=== PATIENT | male | born 1995 | race Caucasian/White ===

== ENCOUNTER 2021-08-12 13:27 | Outpatient (REF) | payer BC, SELFPAY ==
[2021-08-12 13:45] LABS: MANUAL DIFF FLAG NO
[2021-08-12 14:15] LABS: Basophils Absolute Auto 0.1 X10*3/uL (0.0-0.2); Basophils Percent Auto 1.2 % (0-2); Eosinophils Absolute Auto 0.1 X10*3/uL (0.0-0.4); Eosinophils Percent Auto 2.3 % (0-4); Hematocrit 44.7 % (42.0-52.0); Hemoglobin 15.3 g/dl (14.0-18.0); Imm Gran Abs Auto 0.02 X10*3/uL (0.00-0.03); Imm Gran Pct Auto 0.3 % (0.0-0.4); Lymphocytes Absolute Auto 2.3 X10*3/uL (1.2-4.9); Lymphocytes Percent Auto 40.1 % (20-40); Mean Corpuscular HGB Conc 34.2 g/dl (31.0-36.0); Mean Corpuscular Hemoglobin 30.4 pg (27.0-33.0); Mean Corpuscular Volume 88.9 fL (80.0-98.0); Mean Platelet Volume 9.4 fL (9.4-12.4); Monocytes Absolute Auto 0.6 X10*3/uL (0.1-1.2); Monocytes Percent Auto 9.6 % (2-11); Neutrophils Absolute Auto 2.7 x10*3/uL (2.0-8.3); Neutrophils Percent Auto 46.5 % (45-73); Platelet Count 299 X10*3/uL (160-400); Red Blood Count 5.03 X10*6/uL (4.60-5.80); Red Cell Distribution Width 12.3 % (11.0-16.0); White Blood Count 5.7 X10*3/uL (4.8-10.8)
[2021-08-12 14:39] LABS: Alanine Aminotransferase 28 U/L (0-40); Albumin Level 4.8 g/dL (3.5-5.0); Alkaline Phosphatase 47 U/L (39-117); Anion Gap 13 (12-20); Aspartate Amino Transferase 19 U/L (5-37); Bilirubin Total 0.6 mg/dL (0.0-1.0); Blood Urea Nitrogen 12 mg/dL (9-16); Carbon Dioxide 28 mmol/L (22-29); Chloride 102 mmol/L (96-108); Cholesterol 172 mg/dL; Estimated Glomerular Filt Rate > 60; Glucose Fasting 98 mg/dL (60-99); HDL Cholesterol 58 mg/dL; LDL Cholesterol Calculated 95 mg/dl; Potassium 4.4 mmol/L (3.3-5.1); Sodium 139 mmol/L (135-145); Total Protein 7.5 g/dL (6.5-8.0); Triglycerides 97 mg/dL
[2021-08-12 15:00] LABS: TSH reflex Free T4 0.93 uIU/mL (0.32-4.0)
== END 2021-08-12 13:28 | disposition home or self-care (01) ==
LOC: HO.LAB 13:27
PROVIDERS: PCP Physician Assistant; Visit Provider Nurse Practitioner Acute Care
DX: Z00.00 Encounter for general adult medical examination without abnormal findings (principal); Z13.1 Encounter for screening for diabetes mellitus
CPT/HCPCS: 36415; 80053; 80061; 84443; 85025

== ENCOUNTER 2023-07-11 13:47 | Outpatient (AMB) | payer OTHER, SELFPAY ==
--- NOTE | 2023-07-11 13:49 | A.OFFPC_ITS ---
Vital Signs 07/11/23 13:51 Height 5 ft 10 in Weight 191 lb 8 oz BMI 27.5 BP 110/70 Blood Pressure Location Lt brachial Position Sitting Pulse 63 Pulse Source Pulse Oximeter Pulse Oximetry (%) 98 Oxygen Delivery Method Room Air Intake Visit Reasons: Annual PE Intake Note: Patient is here today for a physical. [employer] Supervisor Required: No Correspondence Specialist: Not Required per policy Accompanied by: Self / Same As Patient Allergies No Known Allergies Allergy (Verified 07/11/23 14:01) Medication List - Last Reconciled 07/11/23 by CHICHI Busby finasteride 1 mg PO DAILY Tobacco use date assessed: 07/11/23 Dental Screening Dental Screen Date: 07/11/23 Did you have a dental visit in the last 12 months?: Yes Did you have a dental problem in the last 6 months where you did not have access to dental care?: No Was dental information given to patient?: Patient has dentist HPI Annual PE HPI Details Patient is a 27-year-old male who presents today for physical exam. Patient of KANE Mayorga. patient reports history for numerous skin moles and some were removed in the past, also would like to see Dermatology to check skin moles, reports family history of skin cancer. 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 He was not on medications in the past. Interested in counseling referral and testing for ADHD. Currently on finasteride for hair loss which is prescribed by online provider. Tdap up-to-date per patient. Eye and dental exams up-to-date. No shortness of breath or chest pain. [facility] Medical History Counseling on health promotion and disease prevention Surgical History History of surgery Family History Father Alive and well Mother Alive and well Social [facility] Alcohol intake: current Alcohol intake frequency: a few times a week Patient Tobacco Use Status: Never used Tobacco e-Cigarette/Vaping Use: Never Used Second Hand Smoke Exposure: No service: No Current occupational status: employed Cognitive needs: No Hearing needs: No Vision needs: Yes (glasses) Questionnaire PHQ-9 Over the last 2 weeks, how often have you been bothered by any of the following problems? 1. Little interest or pleasure in doing things: not at all 2. Feeling down, depressed, or hopeless: not at all 3. Trouble falling or staying asleep, or sleeping too much: not at all 4. Feeling tired or having little energy: not at all 5. Poor appetite or overeating: not at all 6. Feeling bad about yourself - or that you are a failure or have let yourself or your family down: not at all 7. Trouble concentrating on things, such as reading the newspaper or watching television: not at all 8. Moving or speaking so slowly that other people could have noticed. Or the opposite - being so fidgety or restless that you have been moving around a lot more than usual: not at all 9. Thoughts that you would be better off or of hurting yourself in some way: not at all Total score: 0 Depression Screening Interpretation: Negative Depression Screening Done: Yes 43049 - PHQ-9 Billing: Yes Source: Developed by Drs. Ivan Thayer, Ursula Reyes, Rafal Orr and colleagues, with an educational ivan from [employer]. Thrive Questionnaire Date Thrive assessed: 07/11/23 I am a: Patient What is your living situation today?: I have a steady place to live Within the past 12 months, did the food you bought not last and you didn't have the money to get more?: Never true Within the past 12 months, did you worry whether your food would run out before you got money to buy more?: Never true Do you have trouble paying for medicines?: No Do you have trouble getting transportation to medical appointments?: No Do you have trouble paying your heating and electricity bill?: No Do you have trouble taking care of your child, family member or friend?: No Do you have trouble with day-to-day activities such as bathing, preparing meals, shopping, managing finances, etc.?: No Are you currently unemployed and looking for a job?: No Are you interested in more education?: No Currently or been in a relationship where the following occur: no concerns reported AUDIT C Alcohol Use Questionnaire (AUDIT-C) 1. How often do you have a drink containing alcohol?: Never Total Score: 0 Score Reviewed/Action Taken: No EMMANUEL-7 AMB Questionnaire EMMANUEL-7 Date EMMANUEL - 7 assessed: 07/11/23 Feeling nervous, anxious, or on edge: 2 = More than half the days Not being able to stop or control worryin = Not at all Worrying too much about different things: 0 = Not at all Trouble relaxin = Not at all Being so restless that it is hard to sit still: 0 = Not at all Becoming easily annoyed or irritable: 2 = More than half the days Feeling afraid as if something awful might happen: 0 = Not at all Total EMMANUEL-7 score (0-4 normal; 5-9 mild; 10-14 moderate; 15-21 severe): 4 Source: Developed by Drs. Ivan Thayer, Ursula Reyes, Rafal Orr and colleagues, with an educational ivan from [employer]. EMMANUEL-7 Assessment Billing EMMANUEL-7 Assessment Tool: EMMANUEL-7 Assessment 36946 Review of Systems Const Denies body aches, Denies chills, Denies fever(s) and Denies headache(s) Eyes Denies change in vision ENT Denies dizziness, Denies otalgia, Denies headache(s), Denies nasal discharge, Denies sinus pain and Denies sore throat Card Denies chest pain, Denies edema, Denies lightheadedness and Denies dyspnea Resp Denies cough, Denies dyspnea and Denies wheezing GI Denies abdominal pain, Denies constipation, Denies diarrhea, Denies nausea and Denies vomiting Denies dysuria Musc Denies myalgias Skin/Breast Denies rash Neuro Denies dizziness and Denies headache(s) Psych Reports anxiety Aller/Immun Denies wheezing Physical exam (Primary Care) Vital Signs: Last Vital Signs Pulse 63 07/11/23 13:51 BP 110/70 07/11/23 13:51 Pulse Ox 98 07/11/23 13:51 Oxygen Delivery Method Room Air 07/11/23 13:51 BMI result Body Mass Index 27.5 Tobacco/Smoking Status: Tobacco use Status Tobacco use date assessed 07/11/23 07/11/23 13:58 Patient Tobacco Use Status Never used Tobacco 07/11/23 13:58 e-Cigarette/Vaping Use Never Used 07/11/23 13:58 PHQ-9: PHQ-9 Score PHQ-9: Total score 0 07/11/23 13:58 Depression Screening Interpretation: Negative Thrive Assessment: Date of Thrive Assessment Date Thrive assessed 07/11/23 07/11/23 13:58 Currently or been in a relationship where the following occur: no concerns reported Const General: cooperative and no acute distress Orientation/consciousness: patient oriented x3 HENMT Head: Yes normocephalic and Yes atraumatic Ears: TM's normal bilaterally Face and sinus: Yes sinuses nontender Mouth: oropharynx normal and moist mucous membranes Throat: Yes posterior oropharynx normal Eyes General: appearance normal, both eyes and all related structures Pupils: Equal, round and reactive pupils present EOM: EOMs intact bilaterally Neck Neck: Yes normal visual inspection, Yes full ROM and Yes no lymphadenopathy Thyroid: Thyroid normal Resp Effort & Inspection: normal respiratory effort and able to speak in complete sentences Auscultation: clear to auscultation bilaterally, no crackles, no rales, no rhonchi and no wheezes Cardio Rate: regular rate Rhythm: regular rhythm Heart sounds: S1 normal heart sound present, S2 normal heart sound present and no murmurs GI Palpation (GI): Soft to palpation, not firm, nontender, no guarding, not rigid and no hepatosplenomegaly Auscultation: normal bowel sounds General: No CVA tenderness Back/Spine/Pelvis Back: No CVA tenderness Skin Other: Bilateral arms with multiple skin moles Neuro General: patient oriented x3 Cranial nerves: Yes Equal, round and reactive pupils present Gait exam (Neuro): Normal gait present Extrem General: Yes full ROM and No edema Assessment and Plan Assessment & Plan (1) ADHD (attention deficit hyperactivity disorder) evaluation: Code(s): Z13.39 - Encounter for screening examination for other mental health and behavioral disorders Plan: Psychiatry referral (2) Numerous skin moles: Code(s): D22.9 - Melanocytic nevi, unspecified Plan: Dermatology referral (3) Anxiety: Code(s): F41.9 - Anxiety disorder, unspecified Plan: Counseling referral Start hydroxyzine b.i.d. p.r.n.-educated about drowsiness Signs and symptoms reviewed when to notify provider (4) Annual physical exam: Code(s): Z00.00 - Encounter for general adult medical examination without abnormal findings Plan: Repeat in 1 year Orders: Orders Vitamin D 25-OH Total Today Z00.00 - Encounter for general adult medical examination without abnormal findings TSH reflex Free T4 Today Z00.00 - Encounter for general adult medical examination without abnormal findings Complete Blood Count Auto Diff Today Z00.00 - Encounter for general adult medical examination without abnormal findings Comprehensive Met. Panel Today Z00.00 - Encounter for general adult medical examination without abnormal findings Referrals Psychiatry Referral Z13.39 - Encounter for screening examination for other mental health and behavioral disorders Dermatology Referral D22.9 - Melanocytic nevi, unspecified Counseling Referral F41.9 - Anxiety disorder, unspecified Medications: New hydroxyzine HCl 10 mg PO BID PRN 20 tabs 0RF anxiety F41.9 - Anxiety disorder, unspecified Coding Level of Care Code Est Pt Prev Care 18-39y(75228) Diagnoses ADHD (attention deficit hyperactivity disorder) evaluation Z.39 Numerous skin moles D22.9 Anxiety F41.9 Annual physical exam Z00.00 Additional Codes EMMANUEL-7 Assessment Billing - EMMANUEL-7 Assessment Tool: EMMANUEL-7 Assessment 26557 ([id number])
[2023-07-11 13:51] VITALS: BP 110/70; PULSE 63; O2SAT 98; BMI 27.5
== END 2023-07-11 14:15 | disposition home or self-care (01) ==
PROVIDERS: PCP Physician Assistant; Visit Provider Nurse Practitioner Family
DX: Z00.00 Encounter for general adult medical examination without abnormal findings (principal); D22.9 Melanocytic nevi, unspecified; F41.9 Anxiety disorder, unspecified
CPT/HCPCS: 99395

== ENCOUNTER 2023-07-11 14:22 | Outpatient (REF) | payer OTHER, SELFPAY ==
[2023-07-11 14:43] LABS: MANUAL DIFF FLAG NO
[2023-07-11 15:07] LABS: Basophils Absolute Auto 0.1 X10*3/uL (0.0-0.2); Basophils Percent Auto 0.8 % (0-2); Eosinophils Absolute Auto 0.1 X10*3/uL (0.0-0.4); Eosinophils Percent Auto 0.6 % (0-4); Hematocrit 45.4 % (42.0-52.0); Hemoglobin 15.3 g/dl (14.0-18.0); Imm Gran Abs Auto 0.03 X10*3/uL (0.00-0.03); Imm Gran Pct Auto 0.4 % (0.0-0.4); Lymphocytes Absolute Auto 2.4 X10*3/uL (1.2-4.9); Lymphocytes Percent Auto 28.1 % (20-40); Mean Corpuscular HGB Conc 33.7 g/dl (31.0-36.0); Mean Corpuscular Hemoglobin 29.9 pg (27.0-33.0); Mean Corpuscular Volume 88.8 fL (80.0-98.0); Mean Platelet Volume 9.6 fL (9.4-12.4); Monocytes Absolute Auto 0.7 X10*3/uL (0.1-1.2); Neutrophils Absolute Auto 5.2 x10*3/uL (2.0-8.3); Neutrophils Percent Auto 62.1 % (45-73); Platelet Count 305 X10*3/uL (160-400); Red Blood Count 5.11 X10*6/uL (4.60-5.80); Red Cell Distribution Width 12.4 % (11.0-16.0); White Blood Count 8.4 X10*3/uL (4.8-10.8)
[2023-07-11 15:37] LABS: Alanine Aminotransferase 25 U/L (0-40); Albumin Level 4.9 g/dL (3.5-5.0); Alkaline Phosphatase 48 U/L (39-117); Anion Gap 12 (12-20); Aspartate Amino Transferase 32 U/L (5-37); Bilirubin Total 0.6 mg/dL (0.0-1.0); Blood Urea Nitrogen 15 mg/dL (9-16); Calcium 10.1 mg/dL (8.4-10.2); Carbon Dioxide 28 mmol/L (22-29); Chloride 103 mmol/L (96-108); Estimated Glomerular Filt Rate > 60; Glucose Random 92 mg/dL (60-115); Potassium 4.3 mmol/L (3.3-5.1); Sodium 139 mmol/L (135-145); Total Protein 7.8 g/dL (6.5-8.0)
[2023-07-11 15:54] LABS: TSH reflex Free T4 0.96 uIU/mL (0.32-4.0); Vitamin D 25-OH Total 42.4 ng/mL (>30)
== END 2023-07-11 14:23 | disposition home or self-care (01) ==
LOC: HO.LAB 14:22
PROVIDERS: Visit Provider Nurse Practitioner Family
DX: Z00.00 Encounter for general adult medical examination without abnormal findings (principal); F41.1 Generalized anxiety disorder
CPT/HCPCS: 36415; 80053; 82306; 84443; 85025

== ENCOUNTER 2024-07-14 13:18 | Outpatient (AMB) | payer OTHER, SELFPAY ==
--- NOTE | 2024-07-14 13:26 | A.OFFPC_ITS ---
Vital Signs 07/14/24 13:29 Height 5 ft 10 in Weight 200 lb BMI 28.7 BP 130/82 Blood Pressure Location Lt brachial Position Sitting Pulse 65 Pulse Source Pulse Oximeter Pulse Oximetry (%) 99 Oxygen Delivery Method Room Air Intake Visit Reasons: pe Allergies No Known Allergies Allergy (Verified 07/14/24 13:49) Medication List - Last Reconciled 07/14/24 by Darell Mayorga PA-C finasteride 1 mg PO DAILY hydroxyzine HCl 10 mg PO BID PRN methylphenidate HCl ER 27 mg PO QAM Tobacco use date assessed: 07/11/23 Dental Screening Dental Screen Date: 07/11/23 HPI pe HPI Details Patient is a 28-year-old male here today for a routine annual physical. Patient has a past medical history significant for anxiety and ADHD. Concern--> reports his left ear is intermittently clogged and feels like there is congestion. .. ADHD : Followed by Psychiatry and continues with Concerta on a p.r.n. basis with with good effect on his attention and focus Vaccines: Declines FLu and COVID vaccines, needs tetanus vaccine though he declines today. [facility] Medical History Counseling on health promotion and disease prevention Surgical History History of surgery Family History (Updated 07/14/24 @ 13:52 by Darell Mayorga PA-C) Father Alive and well Mother Alive and well Melanoma Social History (Updated 07/14/24 @ 13:53 by Darell Mayorga PA-C) Housing: Condominium Alcohol intake: current Alcohol intake frequency: a few times a week Patient Tobacco Use Status: Never used Tobacco e-Cigarette/Vaping Use: Never Used Second Hand Smoke Exposure: No Substance Use Type: Marijuana service: No Current occupational status: employed Current occupation: [employer] Cognitive needs: No Hearing needs: No Vision needs: Yes (glasses) Questionnaire PHQ-9 Over the last 2 weeks, how often have you been bothered by any of the following problems? 1. Little interest or pleasure in doing things: not at all 2. Feeling down, depressed, or hopeless: not at all 3. Trouble falling or staying asleep, or sleeping too much: not at all 4. Feeling tired or having little energy: not at all 5. Poor appetite or overeating: not at all 6. Feeling bad about yourself - or that you are a failure or have let yourself or your family down: not at all 7. Trouble concentrating on things, such as reading the newspaper or watching television: not at all 8. Moving or speaking so slowly that other people could have noticed. Or the opposite - being so fidgety or restless that you have been moving around a lot more than usual: not at all 9. Thoughts that you would be better off or of hurting yourself in some way : not at all Total score: 0 Depression Screening Interpretation: Negative Depression Screening Done: Yes 30331 - PHQ-9 Billing: Yes Source: Developed by Drs. Ivan Thayer, Ursula Reyes, Rafal Orr and colleagues, with an educational ivan from [employer]. Thrive Questionnaire Date Thrive assessed: 07/14/24 I am a: Patient What is your living situation today?: I have a steady place to live Within the past 12 months, did the food you bought not last and you didn't have the money to get more?: Never true Within the past 12 months, did you worry whether your food would run out before you got money to buy more?: Never true Do you have trouble paying for medicines?: No Do you have trouble getting transportation to medical appointments?: No Do you have trouble paying your heating and electricity bill?: No Do you have trouble taking care of your child, family member or friend?: No Do you have trouble with day-to-day activities such as bathing, preparing meals, shopping, managing finances, etc.?: No Are you currently unemployed and looking for a job?: No Are you interested in more education?: No Please select the resources that you would like help with: None Currently or been in a relationship where the following occur: No concerns reported THRIVE Score: 0 AUDIT C Alcohol Use Questionnaire (AUDIT-C) 1. How often do you have a drink containing alcohol?: 2-4 times a month 2. How many drinks containing alcohol do you have on a typical day when you are drinking?: 5 or 6 3. How often do you have six or more drinks on one occasion?: Monthly Total Score: 6 EMMANUEL-7 AMB Questionnaire EMMANUEL-7 Date EMMANUEL - 7 assessed: 07/14/24 Feeling nervous, anxious, or on edge: 0 = Not at all Not being able to stop or control worryin = Not at all Worrying too much about different things: 0 = Not at all Trouble relaxin = Not at all Being so restless that it is hard to sit still: 0 = Not at all Becoming easily annoyed or irritable: 0 = Not at all Feeling afraid as if something awful might happen: 0 = Not at all Total EMMANUEL-7 score (0-4 normal; 5-9 mild; 10-14 moderate; 15-21 severe): 0 Source: Developed by Drs. Ivan Thayer, Ursula Reyes, Rafal Orr and colleagues, with an educational ivan from [employer]. EMMANUEL-7 Assessment Billing EMMANUEL-7 Assessment Tool: EMMANUEL-7 Assessment 25534 Review of Systems Const Denies body aches, Denies chills, Denies excessive sweating, Denies fatigue, Denies fever(s) and Denies headache(s) Eyes Denies blurry vision ENT Denies dysphagia, Denies vertigo, Denies dizziness, Denies headache(s), Denies hearing loss and Denies tinnitus Card Denies chest pain, Denies chest pain with activity, Denies syncope, Denies irregular heart rhythm and Denies dyspnea Resp Denies chest congestion, Denies cough, Denies hemoptysis, Denies dyspnea and Denies wheezing GI Denies abdominal pain, Denies melena, Denies hematochezia, Denies coffee ground emesis, Denies dysphagia, Denies diarrhea, Denies nausea and Denies vomiting Denies difficulty urinating, Denies dysuria, Denies urinary frequency, Denies urinary hesitancy and Denies urinary urgency Musc Denies arthralgias, Denies limited range of motion, Denies muscle cramps and Denies muscle weakness Skin/Breast Denies rash and Denies skin ulcer Neuro Denies Abnormal speech present, Denies confusion, Denies vertigo, Denies dizziness, Denies syncope, Denies headache(s), Denies memory loss and Denies seizure-like activity Psych Denies anxiety, Denies confusion, Denies depression, Denies memory loss, Denies panic attacks and Denies paranoia Endo Denies excessive sweating, Denies fatigue, Denies flushing, Denies polydipsia and Denies polyuria Aller/Immun Denies wheezing Physical exam (Primary Care) Vital Signs: Last Vital Signs Pulse 65 07/14/24 13:29 BP 130/82 07/14/24 13:29 Pulse Ox 99 07/14/24 13:29 Oxygen Delivery Method Room Air 07/14/24 13:29 BMI result Body Mass Index 28.7 Tobacco/Smoking Status: Tobacco use Status Tobacco use date assessed 07/11/23 07/14/24 13:27 Patient Tobacco Use Status Never used Tobacco 07/14/24 13:27 e-Cigarette/Vaping Use Never Used 07/14/24 13:27 PHQ-9: PHQ-9 Score PHQ-9: Total score 0 07/14/24 13:32 Depression Screening Interpretation: Negative Thrive Assessment: Date of Thrive Assessment Date Thrive assessed 07/14/24 07/14/24 13:27 Currently or been in a relationship where the following occur: No concerns reported Const General: cooperative, comfortable, no acute distress, alert and awake; No confusion Orientation/consciousness: oriented to person, oriented to place, patient oriented x3 and No confusion HENMT Head: Yes normocephalic Ears: external ears normal and TM's normal bilaterally Face and sinus: No sinus tenderness Mouth: Normal oral and palatal mucosa present and tongue normal Teeth and gingiva: dentition normal and gingiva normal Throat: Yes posterior oropharynx normal, Yes tonsils normal and Yes uvula midline Eyes Conjunctivae: conjunctivae normal Sclerae: sclerae normal Pupils: Equal, round and reactive pupils present EOM: EOMs intact bilaterally Direct Ophthalmoscopy: No no photophobia Neck Neck: Yes no lymphadenopathy, No tender and Yes no JVD Thyroid: Thyroid normal Carotids: no bruits Chest Chest palpation & inspection: no tenderness Resp Effort & Inspection: normal respiratory effort, no audible wheezes, not labored and no stridor Auscultation: no crackles, no rales, no rhonchi and no wheezes Cardio Jugular venous distension: no JVD Rate: regular rate, not bradycardic and not tachycardic Rhythm: regular rhythm Bruits: no carotid bruits Peripheral pulses: Peripheral pulses 2+ throughout GI Inspection: Yes normal to inspection, No abdominal wall ecchymosis and No visible herniation Palpation (GI): Soft to palpation, nontender, no guarding, not rigid and No hepatosplenomegaly present Auscultation: normoactive bowel sounds General: Yes no CVA tenderness Back/Spine/Pelvis Back: no CVA tenderness and No back tenderness Cervical Spine: cervical ROM normal Thoracic/Lumbar Spine: thoracic and lumbar spine normal to inspection, straight leg raise negative bilaterally, No thoraco-lumbar ROM limited and No lumbar spinal tenderness Skin Lesions: no lesions Rashes: no rashes Wounds: no wounds Neuro General: oriented to person, oriented to place, patient oriented x3, CN's II-XI intact bilaterally and No confusion Cranial nerves: Yes Equal, round and reactive pupils present and Yes Normal accommodation reflex present Cognition (Neuro): normal cognition Speech: No Abnormal speech present Gait exam (Neuro): Normal gait present Motor exam (neuro): 5/5 motor strength present throughout Extrem Right upper extremity: full ROM; no cyanosis Left upper extremity: full ROM; no cyanosis Right lower extremity: no edema Left lower extremity: no edema Psych Appearance: grossly normal Mental Status: mental status grossly normal Affect: normal affect Attitude: cooperative Thought process: Normal thought process present Office Procedures Flu Questionnaire Does the patient have a severe egg allergy?: No Immunizations Fluarix Triv [id number] (PF) 45 mcg (15 mcg x 3)/0.5 mL IM syringe Performing Provider: Darell Mayorga PA-C [facility] Documented (not given) by: MCKAYLA Gold on 07/14/24 13:30 Reason Not Given: Patient Refused Coding Level of Care Code Est Pt Prev Care 18-39y(65396) Diagnoses Annual physical exam Z00. ADHD (attention deficit hyperactivity disorder) evaluation Z13. Dysfunction of left eustachian tube H69.92 Additional Codes EMMANUEL-7 Assessment Billing - EMMANUEL-7 Assessment Tool: EMMANUEL-7 Assessment 47680 ([id number]) Assessment & Plan Assessment & Plan (1) Annual physical exam: Code(s): Z00.00 - Encounter for general adult medical examination without abnormal findings Category: Medical Plan: as per HPI (2) ADHD (attention deficit hyperactivity disorder) evaluation: Code(s): Z13.39 - Encounter for screening examination for other mental health and behavioral disorders Category: Medical Plan: Patient followed by psychiatrist and does use Concerta 27 mg on an few day a week basis. He reports that Concerta has been very helpful to him (3) Dysfunction of left eustachian tube: Code(s): H69.92 - Unspecified Eustachian tube disorder, left ear Category: Medical Plan: Will try antihistamines and nasal sprays to his Eustachian tube clear. Orders: Orders Influenza [id number] Immunization Today Z23 - Encounter for immunization Comprehensive [place]. Panel Fast Today Z13.1 - Encounter for screening for diabetes mellitus
[2024-07-14 13:29] VITALS: BP 130/82; PULSE 65; O2SAT 99; BMI 28.7
== END 2024-07-14 14:09 | disposition home or self-care (01) ==
LOC: HO.HMCH 13:19
PROVIDERS: PCP Physician Assistant; Visit Provider Physician Assistant
DX: Z00.00 Encounter for general adult medical examination without abnormal findings (principal); Z13.39 Encounter for screening examination for other mental health and behavioral disorders; H69.92 Unspecified Eustachian tube disorder, left ear; Z23 Encounter for immunization

== ENCOUNTER → 2024-07-14 13:18 | Outpatient (BNVA) | payer OTHER, SELFPAY | PROVIDERS: PCP Physician Assistant; Visit Provider Physician Assistant | DX: Z00.01 Encounter for general adult medical examination with abnormal findings (principal); H69.92 Unspecified Eustachian tube disorder, left ear; Z28.21 Immunization not carried out because of patient refusal; Z13.39 Encounter for screening examination for other mental health and behavioral disorders | CPT/HCPCS: 90471; 96127 ==

== ENCOUNTER 2024-10-16 12:52 | Outpatient (REF) | payer OTHER, SELFPAY ==
[2024-10-16 14:14] LABS: Alanine Aminotransferase 28 U/L (0-40); Albumin Level 4.6 g/dL (3.5-5.0); Alkaline Phosphatase 42 U/L (39-117); Anion Gap 11 (12-20); Aspartate Amino Transferase 26 U/L (5-37); Bilirubin Total 0.4 mg/dL (0.0-1.0); Blood Urea Nitrogen 16 mg/dL (9-16); Calcium 9.5 mg/dL (8.4-10.2); Carbon Dioxide 28 mmol/L (22-29); Chloride 106 mmol/L (96-108); Estimated Glomerular Filt Rate > 60; Glucose Fasting 89 mg/dL (60-99); Potassium 4.5 mmol/L (3.3-5.1); Sodium 140 mmol/L (135-145); Total Protein 7.6 g/dL (6.5-8.0)
--- OUTSIDE RECORDS SUMMARY | 2024-10-16 16:42 | XMS_ITS | Clinical Summary ---
Author Organization [facility] Address [address] [place] [id number] Phone Care Team Providers Care [place] Rafting Guide Name Role Phone Unavailable Primary Care Provider Unavailabl e Immunizations Name Administration Dates Next Due DTaP 08/23/2001, 8,01/27/1997,11/19,1996 HPV, Quadrivalent 05/14/2014,12/24/2012,10/24/19 13 Hep B, ped/adol 04/21/1997,1996,1996 Hib (PRP-T) 11/15/1997, 7,1996,09/24 IPV 08/03/2001, 7,1996,09/24 Influenza, injectable, quadrivalent 09/27/2012,1 Influenza, injectable, quadr ivalent, preservative free 05/25/2015 MMR 08/23/2001,08/18/1997 Meningococcal Conj (Menactra) MCV4P 10/24/2012,0 01/25/2009 Tdap 01/25/2009 Varicella 01/25/2009,09/21/1998 Family History Relation Name Status Comments Father healthy. severe acne as a child. Father's Sister skin cancer diagnosed with MALIGNANT NEOPLASM NOS Maternal Grandfather COPD, e mphysema diagnosed with HEART DISEASE NOS Mother healthy Social History Tobacco Use Types Packs/Day Years Used Date Smoking Tobacco: Never Assessed Sex and Gender Information Value Date Recorded Sex Assigned at Not on file Legal Sex Male 6:09 PM EDT Gender Identity Not on file Sexual Orientation Not on file Last Filed Vital Signs Vital Sign Reading Time Taken Comments Blood Pressure 118/70 05/25/2015 12:00 AM EDT Pulse - - Temperature 37.1 ??C (98.7 ??F) 09/27/2012 12:[address] Respiratory Rate - - Oxygen Saturation - - Inhaled Oxygen Concentration - - Weight 78.7 kg (173 lb 6.4 oz) 05/25/2015 12:00 AM EDT Height 177.8 cm (5' 10 ) 05/25/2015 12:00 AM EDT Body Mass Index 24.88 05/25/2015 12:00 AM EDT Plan of Treatment Health Maintenance Due Date Last Done Comments Consider Men B Vaccine (1 of 2 - Bexsero 2-dose series) 2012 DTaP,Tdap,and Td Vaccines (7 - Td or Tdap) 01/25/2019 01/25/2009, 08/23/2001, 11/15/1997, Additional history exists Influenza Vaccines (#1) 2024 05/25/20 15, 09/27/2012, 06/27/2010 COVID-19 Vaccine ( season) 2024 Hepatitis B Vaccines Completed 04/21/1997, 1996, 1996 HIB Vaccines Completed 11/15/1997, 01/15, 1996, Additional history exists IPV Vaccines Completed 08/03/2001, 10/1996, 1996, Additional history exists MMR Vaccines Completed 08/23/2001, 08/18/1997 Varicella Vaccines Completed 01/25/2009, 09/21/1998 Meningococcal Vaccine Completed 10/24/2012, 009 HPV Vaccines Completed 05/14/2014, 05/2013, 10/24/2012 Hepatitis A Vaccines Aged Out No long er eligible based on patient's age to complete this topic Men B Vaccine Aged Out No longer elig ible based on patient's age to complete this topic Pneumococcal Vaccine Aged Out No long er eligible based on patient's age to complete this topic
--- OUTSIDE RECORDS SUMMARY | 2024-10-16 16:42 | XMS_ITS | Encounter Summary ---
Author Organization [facility] Address [address] [place] [address] Phone Care Team Providers Care Rib Stiffener And Heel Dipper Name Role Phone Brayden Snowden MD Primary Care Provider Encounter Details Date Type Department Care Team (Late st Contact Info) Description 02/03/2018 Conversion [facility]counter [facility] [address] [place] [address] Brayden Snowden MD [address] [place] [address] Social History Tobacco Use Types Packs/Day Years Used Date Smoking Tobacco: Never Assessed Sex and Gender Information Value Date Recorded Sex Assigned at Not on file Legal Sex Male 6:09 PM EDT Gender Identity Not on file Sexual Orientation Not on file documented as of this encounter Plan of Treatment Not on file documented as of this encounter Visit Diagnoses Not on filedocumented in this encounter Care Teams Rib Stiffener And Heel Dipper Relationship Specialty Start Date End Date Brayden Snowden MD [address] [place] [address] PCP - General 01/23/18 07/01/24 documented as of this encounter
== END 2024-10-16 12:53 | disposition home or self-care (01) ==
LOC: HO.LAB 12:52
PROVIDERS: PCP Physician Assistant; Visit Provider Physician Assistant
DX: Z13.1 Encounter for screening for diabetes mellitus (principal)
CPT/HCPCS: 36415; 80053

== ENCOUNTER 2025-07-16 13:34 | Outpatient (AMB) | payer OTHER, SELFPAY ==
--- NOTE | 2025-07-16 13:35 | A.OFFPC_ITS ---
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 Required: No Accompanied by: Self / Same As Patient Allergies No Known Allergies Allergy (Verified 07/16/25 13:45) Medication List - Last Reconciled 07/16/25 by Darell Mayorga PA-C finasteride 1 mg PO DAILY hydroxyzine HCl 10 mg PO BID PRN methylphenidate HCl ER 27 mg PO QAM Tobacco use date assessed: 07/16/25 Dental Screening Dental Screen Date: 07/16/25 Did you have a dental visit in the last 12 months?: Yes Did you have a dental problem in the last 6 months where you did not have access to dental care?: No Was dental information given to patient?: Patient has dentist HPI Annual Exam HPI Details Patient is a 29-year-old male here today for a routine annual physical. Patient has a past medical history significant for anxiety and ADHD. 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 Does use minoxidil a few times a week for hair growth. He does have a history of melanoma in his family. .. ADHD : Followed by Psychiatry and continues with Concerta on a p.r.n. basis with with good effect on his attention and focus Vaccines: Declines FLu and COVID vaccines, needs tetanus vaccine though he declines today. [facility] Medical History Counseling on health promotion and disease prevention Surgical History History of surgery Family History Father Alive and well Mother Alive and well Melanoma Social History Housing: Condominium Alcohol intake: current Alcohol intake frequency: a few times a week Patient Tobacco Use Status: Never used Tobacco e-Cigarette/Vaping Use: Never Used Second Hand Smoke Exposure: No Substance Use Type: Marijuana service: No Current occupational status: employed Current occupation: [employer] Cognitive needs: No Hearing needs: No Vision needs: Yes (glasses) Questionnaire PHQ-9 Over the last 2 weeks, how often have you been bothered by any of the following problems? 1. Little interest or pleasure in doing things: not at all 2. Feeling down, depressed, or hopeless: not at all 3. Trouble falling or staying asleep, or sleeping too much: not at all 4. Feeling tired or having little energy: not at all 5. Poor appetite or overeating: not at all 6. Feeling bad about yourself - or that you are a failure or have let yourself or your family down: not at all 7. Trouble concentrating on things, such as reading the newspaper or watching television: not at all 8. Moving or speaking so slowly that other people could have noticed. Or the opposite - being so fidgety or restless that you have been moving around a lot more than usual: not at all 9. Thoughts that you would be better off or of hurting yourself in some way: not at all Total score: 0 Depression Screening Interpretation: Negative Depression Screening Done: Yes 49474 - PHQ-9 Billing: Yes Source: Developed by Drs. Ivan Thayer, Ursula Reyes, Rafal Orr and colleagues, with an educational ivan from [employer]. Thrive Questionnaire Date Thrive assessed: 07/16/25 I am a: Patient What is your living situation today?: I have a steady place to live Within the past 12 months, did the food you bought not last and you didn't have the money to get more?: Never true Within the past 12 months, did you worry whether your food would run out before you got money to buy more?: Never true Do you have trouble paying for medicines?: No Do you have trouble getting transportation to medical appointments?: No Do you have trouble paying your heating and electricity bill?: No Do you have trouble taking care of your child, family member or friend?: No Do you have trouble with day-to-day activities such as bathing, preparing meals, shopping, managing finances, etc.?: No Are you currently unemployed and looking for a job?: No Are you interested in more education?: No Please select the resources that you would like help with: None Currently or been in a relationship where the following occur: No concerns reported THRIVE Score: 0 AUDIT C Alcohol Use Questionnaire (AUDIT-C) 1. How often do you have a drink containing alcohol?: 2-4 times a month 2. How many drinks containing alcohol do you have on a typical day when you are drinking?: 5 or 6 3. How often do you have six or more drinks on one occasion?: Monthly Total Score: 6 EMMANUEL-7 AMB Questionnaire EMMANUEL-7 Date EMMANUEL - 7 assessed: 07/16/25 Feeling nervous, anxious, or on edge: 0 = Not at all Not being able to stop or control worryin = Not at all Worrying too much about different things: 0 = Not at all Trouble relaxin = Not at all Being so restless that it is hard to sit still: 0 = Not at all Becoming easily annoyed or irritable: 0 = Not at all Feeling afraid as if something awful might happen: 0 = Not at all Total EMMANUEL-7 score (0-4 normal; 5-9 mild; 10-14 moderate; 15-21 severe): 0 Source: Developed by Drs. Ivan Thayer, Ursula Reyes, Rafal Orr and colleagues, with an educational ivan from [employer]. EMMANUEL-7 Assessment Billing EMMANUEL-7 Assessment Tool: EMMANUEL-7 Assessment 97504 Review of Systems Const Denies body aches, Denies chills, Denies excessive sweating, Denies fatigue, Denies fever(s) and Denies headache(s) Eyes Denies blurry vision ENT Denies dysphagia, Denies vertigo, Denies dizziness, Denies headache(s), Denies hearing loss and Denies tinnitus Card Denies chest pain, Denies chest pain with activity, Denies syncope, Denies irregular heart rhythm and Denies dyspnea Resp Denies chest congestion, Denies cough, Denies hemoptysis, Denies dyspnea and Denies wheezing GI Denies abdominal pain, Denies melena, Denies hematochezia, Denies coffee ground emesis, Denies dysphagia, Denies diarrhea, Denies nausea and Denies vomiting Denies difficulty urinating, Denies dysuria, Denies urinary frequency, Denies urinary hesitancy and Denies urinary urgency Musc Denies arthralgias, Denies limited range of motion, Denies muscle cramps and Denies muscle weakness Skin/Breast Denies rash and Denies skin ulcer Neuro Denies Abnormal speech present, Denies confusion, Denies vertigo, Denies dizziness, Denies syncope, Denies headache(s), Denies memory loss and Denies seizure-like activity Psych Denies anxiety, Denies confusion, Denies depression, Denies memory loss, Denies panic attacks and Denies paranoia Endo Denies excessive sweating, Denies fatigue, Denies flushing, Denies polydipsia and Denies polyuria Aller/Immun Denies wheezing Physical exam (Primary Care) Vital Signs: Last Vital Signs Pulse 74 07/16/25 13:36 BP 102/64 07/16/25 13:36 Pulse Ox 98 07/16/25 13:36 Oxygen Delivery Method Room Air 07/16/25 13:36 BMI result Body Mass Index 29.6 Tobacco/Smoking Status: Tobacco use Status Tobacco use date assessed 07/16/25 07/16/25 13:43 Patient Tobacco Use Status Never used Tobacco 07/16/25 13:43 e-Cigarette/Vaping Use Never Used 07/16/25 13:43 PHQ-9: PHQ-9 Score PHQ-9: Total score 0 07/16/25 13:43 Depression Screening Interpretation: Negative Thrive Assessment: Date of Thrive Assessment Date Thrive assessed 07/16/25 07/16/25 13:43 Currently or been in a relationship where the following occur: No concerns reported Const General: cooperative, comfortable, no acute distress, alert and awake; No confusion Orientation/consciousness: oriented to person, oriented to place, patient o riented x3 and No confusion HENMT Head: Yes normocephalic Ears: external ears normal and TM's normal bilaterally Face and sinus: No sinus tenderness Mouth: Normal oral and palatal mucosa present and tongue normal Teeth and gingiva: dentition normal and gingiva normal Throat: Yes posterior oropharynx normal, Yes tonsils normal and Yes uvula midline Eyes Conjunctivae: conjunctivae normal Sclerae: sclerae normal Pupils: Equal, round and reactive pupils present EOM: EOMs intact bilaterally Direct Ophthalmoscopy: No no photophobia Neck Neck: Yes no lymphadenopathy, No tender and Yes no JVD Thyroid: Thyroid normal Carotids: no bruits Chest Chest palpation & inspection: no tenderness Resp Effort & Inspection: normal respiratory effort, no audible wheezes, not labored and no stridor Auscultation: no crackles, no rales, no rhonchi and no wheezes Cardio Jugular venous distension: no JVD Rate: regular rate, not bradycardic and not tachycardic Rhythm: regular rhythm Bruits: no carotid bruits Peripheral pulses: Peripheral pulses 2+ throughout GI Inspection: Yes normal to inspection, No abdominal wall ecchymosis and No visible herniation Palpation (GI): Soft to palpation, nontender, no guarding, not rigid and No hepatosplenomegaly present Auscultation: normoactive bowel sounds General: Yes no CVA tenderness Back/Spine/Pelvis Back: no CVA tenderness and No back tenderness Cervical Spine: cervical ROM normal Thoracic/Lumbar Spine: thoracic and lumbar spine normal to inspection, straight leg raise negative bilaterally, No thoraco-lumbar ROM limited and No lumbar spinal tenderness Skin Lesions: no lesions Rashes: no rashes Wounds: no wounds Neuro General: oriented to person, oriented to place, patient oriented x3, CN's II-XI intact bilaterally and No confusion Cranial nerves: Yes Equal, round and reactive pupils present and Yes Normal accommodation reflex present Cognition (Neuro): normal cognition Speech: No Abnormal speech present Gait exam (Neuro): Normal gait present Motor exam (neuro): 5/5 motor strength present throughout Extrem Right upper extremity: full ROM; no cyanosis Left upper extremity: full ROM; no cyanosis Right lower extremity: no edema Left lower extremity: no edema Psych Appearance: grossly normal Mental Status: mental status grossly normal Affect: normal affect Attitude: cooperative Thought process: Normal thought process present Coding Level of Care Code Est Pt Prev Care 18-39y(53046) Diagnoses Annual physical exam Z00. ADHD (attention deficit hyperactivity disorder) evaluation Z13.39 Additional Codes PHQ-9 - 79246 - PHQ-9 Billing: Yes ([id number]) EMMANUEL-7 Assessment Billing - EMMANUEL-7 Assessment Tool: EMMANUEL-7 Assessment 43643 ([id number]) Assessment & Plan Assessment & Plan (1) Annual physical exam: Code(s): Z00.00 - Encounter for general adult medical examination without abnormal findings Category: Medical Plan: as per HPI (2) ADHD (attention deficit hyperactivity disorder) evaluation: Code(s): Z13.39 - Encounter for screening examination for other mental health and behavioral disorders Category: Medical Plan: Patient followed by psychiatrist and does use Concerta 27 mg on an few day a week basis. He reports that Concerta has been very helpful to him
[2025-07-16 13:36] VITALS: BP 102/64; PULSE 74; O2SAT 98; BMI 29.6
--- OUTSIDE RECORDS SUMMARY | 2025-07-16 16:34 | XMS_ITS | Encounter Summary ---
Author Organization [facility] Address [address] [place] [phone] Phone Care Team Providers Care Informatics Nurse Name Role Phone Brayden Snowden MD Primary Care Provider Encounter Details Date Type Department Care Team (Late st Contact Info) Description 02/03/2018 Conversion [facility]counter [facility] [address] [place] [address] Brayden Snowden MD [address] [place] [address] Social History Tobacco Use Types Packs/Day Years [...] on filedocumented in this encounter Care Teams Informatics Nurse Relationship Specialty Start Date End Date Brayden Snowden MD [address] [place] [address] PCP - General 01/23/18 07/01/24 documented as of this encounter
--- OUTSIDE RECORDS SUMMARY | 2025-07-16 16:34 | XMS_ITS | Clinical Summary ---
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 Name Role Phone Unavailable Primary Care Provider Unavailabl e Immunizations Immunization Administration Dates Next Due DTaP 08/23/2001, 8,01/27/1997,11/19,1996 [...] AM EDT Pulse - - Temperature 37.1 C (98.7 F) 09/27/2012 12:00 AM EST Respiratory Rate - - Oxygen Saturation - - Inhaled Oxygen Concentration - - Weight 78.7 kg (173 lb 6.4 oz) 05/25/2015 12:00 AM EDT Height 177.8 cm (5' 10 ) 05/25/2015 12:00 AM EDT Body Mass Index 24.88 05/25/2015 12:00 AM EDT Plan of Treatment Health Maintenance Due Date Last Done Comments DTaP,Tdap,and Td Vaccines (7 - Td or Tdap) 01/25/2019 01/25/2009, 08/23/2001, 11/15/1997, Additional history exists Influenza Vaccines (#1) 2025 05/25/20 15, 09/27/2012, 06/27/2010 COVID-19 Vaccine ( season) 2025 Hepatitis B Vaccines Completed 04/21/1997, 1996, 1996 HIB Vaccines Completed 11/15/1997, 01/15, 1996, Additional history exists IPV Vaccines Completed 08/03/2001, 10/1996, 1996, Additional history exists MMR Vaccines Completed 08/23/2001, 08/18/1997 Varicella Vaccines Completed 01/25/2009, 09/21/1998 Meningococcal Vaccine Completed 10/24/2012, 009 HPV Vaccines Completed 05/14/2014, 040 05/2013, 10/24/2012 Hepatitis A Vaccines Aged Out No long er eligible based on patient's age to complete this topic Men B Vaccine Aged Out No longer elig ible based on patient's age to complete this topic Pneumococcal Vaccine Aged Out No long er eligible based on patient's age to complete this topic
== END 2025-07-16 13:58 | disposition home or self-care (01) ==
LOC: HO.HMCH 13:34
PROVIDERS: PCP Physician Assistant; Visit Provider Physician Assistant
DX: Z00.00 Encounter for general adult medical examination without abnormal findings (principal); Z13.39 Encounter for screening examination for other mental health and behavioral disorders

== ENCOUNTER → 2025-07-16 13:34 | Outpatient (BNVA) | payer OTHER, SELFPAY | PROVIDERS: PCP Physician Assistant; Visit Provider Physician Assistant | DX: Z00.00 Encounter for general adult medical examination without abnormal findings (principal); F41.9 Anxiety disorder, unspecified; Z13.39 Encounter for screening examination for other mental health and behavioral disorders | CPT/HCPCS: 96127 ==